=== PATIENT | female | born 1980 | race Caucasian/White ===

== ENCOUNTER 2017-03-23 20:45 | Emergency (ER) | payer SELFPAY ==
[2017-03-23] MEDS ORDERED: ONDANSETRON HCL/PF 4 MG/ 2ML VIAL ONE (21:23)
[2017-03-23] MEDS ORDERED: 0.9 % SODIUM CHLORIDE 1,000 ML IV ONE ×2 (21:23→21:32)
[2017-03-23] MEDS ORDERED: KETOROLAC TROMETHAMINE 30 MG/1ML VIAL ONE (21:23)
[2017-03-23] MEDS ORDERED: ONDANSETRON HCL/PF 4 MG/ 2ML VIAL IVP ONE (21:32)
[2017-03-23] MEDS ORDERED: KETOROLAC TROMETHAMINE 30 MG/1ML VIAL IVP ONE (21:32)
[2017-03-23 21:41] LABS: BASOPHILS % 0.4 (0.0-1.5); MEAN CORPUSCULAR HEMOGLOBIN 30.1 pg (28.0-34.0); MEAN CORPUSCULAR VOLUME 90.1 fl (80.0-100.0)
[2017-03-23 21:54] LABS: eGFR (African) > 60; eGFR (Non-African) > 60
[2017-03-23] MEDS ORDERED: HYDROcodone /APAP 5/325 1 EACH TABLET PO ONE (22:30)
--- NOTE | 2017-03-23 22:32 | ED Physician Documentation ---
General Adult - HPI Stated Complaint: Left Ear Pain Chief Complaint: General Adult Onset: days ago Timing: still present Severity: moderate Further Comments: yes (Pt is a 37 yo female with L ear pain after being on vacation and going to the beach in [place]. Pt has had n/v. Pt has had no cough, no dysuria. Normal bm's.) - ROS CONST: no problems EYES/ENT: other (L ear pain) CVS/RESP: none GI/: vomiting, nausea MS/SKIN/LYMPH: none - PAST HX Past History: other (Anxiety/Depression) Surgeries/Procedures: , hysterectomy Allergies/Adverse Reactions: Allergies Allergy/AdvReac Type Severity Reaction Status Date / Time prochlorperazine edisylate Allergy Mild unknown' Verified 03/23/17 21:11 [From Compazine] prochlorperazine maleate Allergy Mild unknown' Verified 03/23/17 21:11 [From Compazine] tramadol Allergy Mild Hives Verified 03/23/17 21:11 Penicillins Allergy Unknown Verified 03/23/17 21:11 cefaclor [From Ceclor] Allergy Verified 03/23/17 21:11 Home Medications: Ambulatory Orders Medication Instructions Recorded Carbamazepine [Tegretol] 200 mg PO BID 01/09/14 Citalopram Hydrobromide [Celexa] 40 mg PO D 01/09/14 Estradiol [Estrace] 1 mg PO D 01/09/14 Propranolol HCl [Inderal] 20 mg PO TID #90 tablet 11/21/14 - SOCIAL HX Smoking History: cigarettes - FAMILY HX Family History: No - VITAL SIGNS Vital Signs: Vital Signs Temp Pulse Resp BP Pulse Ox 97.1 F L 70 16 99/63 99 03/23/17 20:45 03/23/17 20:45 03/23/17 20:45 03/23/17 20:45 03/23/17 20:45 - REVIEWED ASSESSMENTS Nursing Assessment Reviewed: Yes Vitals Reviewed: Yes Progress - Progress Progress: NS 1 L IVF Zofran 4 mg IV [place] (5/325) 1 po in Er Keflex 500 mg po in ER. Rx Keflex 500 mg. Take one every 8 hrs for 10 days. Rx [place] (5/325). Take one or two every 4 to 6 hrs as needed for moderate to severe pain. ED Results Lab/Radiology - Lab Results Lab Results: Lab Results 03/23/17 03/23/17 21:32 21:32 WBC 3.00 K/ul L K/ul (4.00-12.00) RBC 4.11 M/ul M/ul (3.90-5.20) Hgb 12.4 g/dL g/dL (12.0-16.0) Hct 37.0 % % (34.5-46.5) MCV 90.1 fl fl (80.0-100.0) MCH 30.1 pg pg (28.0-34.0) MCHC 33.4 g/dL g/dL (30.0-36.0) RDW 12.7 % % (11.3-14.3) Plt Count 152 K/mm3 K/mm3 (130-400) Neut % (Auto) 32.1 % L % (39.0-79.0) Lymph % (Auto) 55.8 % H % (16.0-50.0) King % (Auto) 6.0 % % (0.0-11.0) Eos % (Auto) 3.0 % % (0.0-6.8) Baso % (Auto) 0.4 (0.0-1.5) Neut # (Auto) 1.0 # k/uL L # k/uL (1.4-7.7) Lymph # (Auto) 1.7 # k/uL # k/uL (0.6-4.0) King # (Auto) 0.2 # k/uL # k/uL (0.0-0.9) Eos # (Auto) 0.1 # k/uL # k/uL (0.0-0.6) Baso # (Auto) 0.0 # k/uL # k/uL (0.0-0.5) Reactive Lymphs % 2.7 % % (0.0-5.0) Reactive Lymphs # 0.1 # k/uL # k/uL (0.0-0.8) Sodium 140 mmol/L mmol/L (136-145) Potassium 3.7 mmol/L mmol/L (3.5-5.0) Chloride 106 mmol/L mmol/L (98-110) Carbon Dioxide 31 mmol/L mmol/L (20-32) BUN 10 mg/dL mg/dL (10-26) Creatinine 0.6 mg/dL mg/dL (0.4-1.5) Estimated Creat Clear 165 Est GFR ( Amer) > 60 (60 - ) Est GFR (Non-Af Amer) > 60 (60 - ) Glucose 104 mg/dL H mg/dL (70-99) Calcium 9.6 mg/dL mg/dL (8.5-10.5) Total Bilirubin 0.3 mg/dL mg/dL (0.2-1.2) AST 21 U/L U/L (0-41) ALT 27 U/L U/L (0-45) Alkaline Phosphatase 56 U/L U/L (46-116) Total Protein 6.4 g/dL g/dL (6.0-8.5) Albumin 4.1 g/dL g/dL (3.0-5.5) - Orders Orders: ED Orders Category Date Time Status Place IV Lock 1T Care 03/23/17 21:32 Active CBC/PLATELET/DIFF Routine Lab 03/23/17 21:32 Completed CMP Routine Lab 03/23/17 21:32 Completed 0.9 % Sodium Chloride [Normal Saline] 1,000 ml Med 03/23/17 21:23 Discontinued IV .STK-MED 0.9 % Sodium Chloride [Normal Saline] 1,000 ml Med 03/23/17 21:32 Active IV Q1H HYDROcodone /APAP 5/325 [[place] 5/325] Med 03/23/17 22:30 Once 2 each PO NOW ONE Ketorolac Tromethamine [Toradol] Med 03/23/17 21:23 Discontinued 30 mg .ROUTE .STK-MED ONE Ketorolac Tromethamine [Toradol] Med 03/23/17 21:32 Discontinued 30 mg IVP NOW ONE Ondansetron HCl/Pf [Zofran 4 mg/2 ml] Med 03/23/17 21:23 Discontinued 4 mg .ROUTE .STK-MED ONE Ondansetron HCl/Pf [Zofran 4 mg/2 ml] Med 03/23/17 21:32 Discontinued 4 mg IVP NOW ONE General Adult Physical Exam - PHYSICAL EXAM GENERAL APPEARANCE: moderate distress EENT: pharynx normal, TM erythema (L) NECK: normal inspection, supple RESPIRATORY: no resp distress, chest non-tender, breath sounds normal CVS: reg rate & rhythm, heart sounds normal ABDOMEN: soft, no organomegaly, normal bowel sounds BACK: normal inspection, no CVA tenderness SKIN: warm/dry, normal color EXTREMITIES: non-tender, normal range of motion, no evidence of injury, no edema NEURO: oriented X3, motor nml, sensation nml Discharge Clincal Impression: L ear pain Referrals: Laura Mcelroy PRN [Primary Care Provider] - Home Medications: Ambulatory Orders Carbamazepine [Tegretol] 200 mg PO BID 01/09/14 Citalopram Hydrobromide [Celexa] 40 mg PO D 01/09/14 Estradiol [Estrace] 1 mg PO D 01/09/14 Propranolol HCl [Inderal] 20 mg PO TID #90 tablet 11/21/14 Condition: Stable Disposition: 01 HOME, SELF-CARE Decision to Admit: NO Decision Time: 22:46
[2017-03-23] MEDS ORDERED: CEPHALEXIN 250 MG CAPSULE PO ONE (22:34)
[2017-03-23] MEDS ORDERED: CEPHALEXIN 250 MG CAPSULE ONE (22:35)
[2017-03-23 22:43] VITALS: BP 108/68
== END 2017-03-23 22:42 | disposition home or self-care (01) ==
LOC: ED 20:45
DX: H92.02 Otalgia, left ear (principal)
CPT/HCPCS: 80053; 85025; A9270; J1885; J2405; J7030; 96361; 96374; 96375; 99283; S1016

== ENCOUNTER 2017-04-23 23:14 | Emergency (ER) | payer SELFPAY ==
[2017-04-23] MEDS ORDERED: CEPHALEXIN 250 MG CAPSULE PO ONE (23:43)
[2017-04-23] MEDS ORDERED: HYDROcodone /APAP 5/325 1 EACH TABLET PO ONE (23:43)
--- NOTE | 2017-04-23 23:50 | ED Physician Documentation ---
Skin Rash - HISTORIAN Historian: patient - HPI Stated Complaint: spider bite Chief Complaint: Skin Rash Front/Back of Body, Lg ([place]): 1 - area of induration with vessiculasr aspect Onset: days ago (2) Timing: still present Duration: persistent since (happened) Location: other (left gluteal area) Quality: itchy, painful Identified Cause?: Yes (spider found beneath her) When Did Symptoms Start: 04/22/17 Context: Medication Exposure: none Context: Food Exposure: none Context: Other Exposure: spider bite Further Comments: no - ROS CONST: none CVS/RESP: none EYES/ENT: none GI/: none MS/SKIN/LYMPH: rash (as noted above) NEURO/PSYCH: none - PAST HX Past History: other (anxiety, depression) Other History: none Surgeries/Procedures: No Immunizations: referred to PCP Allergies/Adverse Reactions: Allergies Allergy/AdvReac Type Severity Reaction Status Date / Time prochlorperazine edisylate Allergy Mild unknown' Verified 04/23/17 23:20 [From Compazine] prochlorperazine maleate Allergy Mild unknown' Verified 04/23/17 23:20 [From Compazine] tramadol Allergy Mild Hives Verified 04/23/17 23:20 Penicillins Allergy Unknown Verified 04/23/17 23:20 cefaclor [From Ceclor] Allergy Verified 04/23/17 23:20 Home Medications: Ambulatory Orders Medication Instructions Recorded Citalopram Hydrobromide [Celexa] 40 mg PO D 01/09/14 Estradiol [Estrace] 1 mg PO D 01/09/14 Propranolol HCl [Inderal] 20 mg PO TID #90 tablet 11/21/14 Baclofen 20 mg PO QID 04/23/17 - SOCIAL HX Smoking History: non-smoker Alcohol Use: none Drug Use: none - FAMILY HX Family History: none - VITAL SIGNS Vital Signs: Vital Signs Temp Pulse Resp BP Pulse Ox 98.2 F 61 16 104/62 98 04/23/17 23:15 04/23/17 23:15 04/23/17 23:15 04/23/17 23:15 04/23/17 23:15 - REVIEWED ASSESSMENTS Nursing Assessment Reviewed: Yes Vitals Reviewed: Yes Progress - Results/Orders Results/Orders: no testing ordered - Progress Progress: pt. given 1000 mg Keflex and Vicodin 5/325 p.o. in er Critical Care Note - Critical Care Note Total Time (mins): 0 ED Results Lab/Radiology - Lab Results Lab Results: no testing ordered - Radiology Radiology Impressions: no testing ordered - Orders Orders: ED Orders Category Date Time Status Cephalexin [Keflex] Med 04/23/17 23:43 Discontinued 1,000 mg PO NOW ONE HYDROcodone /APAP 5/325 [[place] 5/325] Med 04/23/17 23:43 Discontinued 1 each PO NOW ONE Skin Rash Physical Exam - EXAM General Appearance: alert, moderate distress Skin: warm,dry, tender indurated area (2 x 2 cm left gluteal area) Location: other (left gluteal area) Character: asymmetric, patchy, vesicular, urticarial Symptoms: warmth, tenderness, rough texture Extremities: non-tender EENT: eyes nml inspection, lips nml, gums nml, pharynx nml Neck: trachea midline, no swelling Respiratory: no resp distress, chest non-tender, breath sounds normal CVS: reg. rate & rhythm, heart sounds nml Abdomen: non-tender, no organomegaly, nml bowel sounds, no distention Neuro/Psych: oriented x3, CN's nml as tested, motor nml, sensation nml, mood/ affect nml Discharge Clincal Impression: Cellulitis Qualifiers: Site of cellulitis: buttock Qualified Code(s): L03.317 - Cellulitis of buttock Referrals: Laura Mcelroy, PRN [Primary Care Provider] - 2 Days Home Medications: Ambulatory Orders Citalopram Hydrobromide [Celexa] 40 mg PO D 01/09/14 Estradiol [Estrace] 1 mg PO D 01/09/14 Propranolol HCl [Inderal] 20 mg PO TID #90 tablet 11/21/14 Baclofen 20 mg PO QID 04/23/17 Comments: Discharged in stable condition with scripts for Keflex 500 mg #30 2 p.o. bid and Vicodin 5/325 #10 1 p.o. qid prn pain. Condition: Stable Disposition: 01 HOME, SELF-CARE Decision to Admit: NO Decision Time: 23:49
[2017-04-23 23:52] VITALS: BP 104/60
== END 2017-04-23 23:50 | disposition home or self-care (01) ==
LOC: ED 23:14
DX: L03.317 Cellulitis of buttock (principal)
CPT/HCPCS: 99283; A9270-GY

== ENCOUNTER 2017-05-01 12:26 | Outpatient (CLI) | payer SELFPAY | END 2017-05-01 12:27 | LOC: LAB 12:26 | PROVIDERS: ATTEND Psychiatry & Neurology Psychiatry | DX: Z79.899 Other long term (current) drug therapy (principal) | CPT/HCPCS: 80377; G0481 ==

== ENCOUNTER 2017-06-02 16:53 | Emergency (ER) | payer SELFPAY ==
--- NOTE | 2017-06-02 17:09 | ED Physician Documentation ---
Headache - HISTORIAN Historian: patient - HPI Stated Complaint: Migraine Chief Complaint: Headache Onset: hours (8) Timing: other (started 3 days ago with increasing nausea ) New Gradual Onset: No Exposure To: none Severity: moderate Quality: pain Associated Symptoms: sensitivity to light, nausea, vomiting. denies: fever, chills, sweating, problems with vision, neck pain, stiffness, speech problems, weakness, trouble walking, tingling, numbness, dizziness, light-headedness Preceding Symptoms: denies: visual disturbance Exacerbated By: light, movement, position Further Comments: no Last known Well Date: 05/30/17 Last Known Well Time: 08:00 Last known Well Code/Unknown Code: Unknown - ROS NEURO/PSYCH: denies: confusion, anxiety, depression, fainting EYES/ENT: denies: sore throat, difficulty swallowing, sinus pain, drainage CVS/RESP: denies: chest pain, shortness of breath, cough GI/: denies: abdominal pain, diarrhea, incontinence MS/SKIN/LYMPH: denies: muscle aches, back pain - PAST HX Medical History: other (migraines ) Surgical History: other (csections x 2 , wisdom teeth removal, lap ) Immunizations: referred to PCP - SOCIAL HX Smoking History: non-smoker Alcohol Use: none Drug Use: none - Family HX Family History: none - REVIEWED ASSESSMENTS Nursing Assessment Reviewed: Yes Vitals Reviewed: Yes - PAST HX Allergies/Adverse Reactions: Allergies Allergy/AdvReac Type Severity Reaction Status Date / Time prochlorperazine edisylate Allergy Mild unknown' Verified 06/02/17 17:15 [From Compazine] prochlorperazine maleate Allergy Mild unknown' Verified 06/02/17 17:15 [From Compazine] tramadol Allergy Mild Hives Verified 06/02/17 17:15 Penicillins Allergy Unknown Verified 06/02/17 17:15 [facility] Allergy Verified 06/02/17 17:15 Home Medications: Ambulatory Orders Medication Instructions Recorded Citalopram Hydrobromide [Celexa] 40 mg PO D 01/09/14 Estradiol [Estrace] 1 mg PO D 01/09/14 Propranolol HCl [Inderal] 20 mg PO TID #90 tablet 11/21/14 Baclofen 20 mg PO QID 04/23/17 Ondansetron HCl Rapdis [Zofran Odt] 4 mg PO Q8 PRN #5 tab 06/02/17 - VITAL SIGNS Vital Signs: Vital Signs Temp Pulse Resp BP Pulse Ox 98.2 F 80 16 134/87 98 06/02/17 17:11 06/02/17 17:11 06/02/17 17:11 06/02/17 17:11 06/02/17 17:11 Progress - Progress Progress: 1749: states her headache is 04/09 1817: reports she is resting now. headache is "better and no nausea" (Luann Wayne) Patient was seen and I agree with assessment and treatment plan for patient. Nick Orr MD (Nick Orr) - Orders Orders: ED Orders Category Date Time Status Place IV Lock 1T Care 06/02/17 17:27 Active 0.9 % Sodium Chloride [Normal Saline] 1,000 ml Med 06/02/17 17:25 Discontinued IV Q1H Ketorolac Tromethamine [Toradol] Med 06/02/17 17:26 Discontinued 30 mg IVP NOW ONE Ondansetron HCl/Pf [Zofran 4 mg/2 ml] Med 06/02/17 17:26 Discontinued 4 mg IVP NOW ONE diphenhydrAMINE HCL [Benadryl] Med 06/02/17 17:26 Discontinued 25 mg IVP NOW ONE fentaNYL CITRATE/PF [Duragesic] Med 06/02/17 18:03 Discontinued 25 mcg IVP NOW ONE Headache Physical Exam - EXAM General Appearance: no acute distress, alert EENT: PERRL Neck: normal inspection Respiratory: no resp distress, chest non-tender, breath sounds normal CVS: reg. rate & rhythm, heart sounds nml, murmur Abdomen: non-tender, no organomegaly, nml bowel sounds, no distention Skin: color nml, no rash Extremitites: non-tender - NEURO/PSYCH Higher Functions: alert, oriented x3, slow to respond Cranial: nml as tested, no evidence of acute CVA Cerebellar: nml as tested Sensorimotor: motor nml, sensation nml Discharge Decision to Admit: NO Date of Decison to Admit: 06/02/17 Decision Time: 18:18 Clincal Impression: Headache Qualifiers: Headache type: unspecified Headache chronicity pattern: acute headache Intractability: not intractable Qualified Code(s): R51 - Headache Prescriptions: Ondansetron HCl Rapdis [Zofran Odt] 4 mg PO Q8 PRN #5 tab PRN Reason: Nausea / Vomiting Referrals: Laura Mcelroy PRN [Primary Care Provider] - 2 Days Condition: Stable Disposition: 01 HOME, SELF-CARE
[2017-06-02] MEDS ORDERED: 0.9 % SODIUM CHLORIDE 1,000 ML IV ONE (17:25)
[2017-06-02] MEDS ORDERED: KETOROLAC TROMETHAMINE 30 MG/1ML VIAL IVP ONE (17:26)
[2017-06-02] MEDS ORDERED: diphenhydrAMINE HCL 50 MG/ML VIAL IVP ONE (17:26)
[2017-06-02] MEDS ORDERED: ONDANSETRON HCL/PF 4 MG/ 2ML VIAL IVP ONE (17:26)
[2017-06-02] MEDS ORDERED: fentaNYL CITRATE/PF 100 MCG/ 2ML AMP IVP ONE (18:03)
[2017-06-02 18:36] VITALS: BP 112/69
== END 2017-06-02 18:31 | disposition home or self-care (01) ==
LOC: ED 16:53
DX: R51 Headache (principal)
CPT/HCPCS: J1200; J1885; J2405; J3010; J7030; 96361; 96374; 96375; 99283; S1016

== ENCOUNTER 2017-07-20 19:10 | Emergency (ER) | payer SELFPAY ==
--- NOTE | 2017-07-20 19:22 | ED Physician Documentation ---
Fall - HISTORIAN Historian: patient, spouse - HPI Stated Complaint: fall down home stairs Chief Complaint: Fall Onset: just prior to arrival Where: home Context: slipped r: moderate Associated Symptoms:: no loss of consciousness. denies: memory impairment Location of Pain/Injury: neck, upper back, R shoulder Injury to Right Extremity: leg Injury to Left Extremity: wrist - ROS CONST: no problems NEURO: denies: dizziness, anxiety MS/SKIN/LYMPH: back pain. denies: weakness, numbness, ankle swelling, leg swelling EYES/ENT: none CVS/RESP: none GI/: denies: problems urinating - PAST HX Past History: other (depression and Migraines ) Allergies/Adverse Reactions: Allergies Allergy/AdvReac Type Severity Reaction Status Date / Time prochlorperazine edisylate Allergy Mild unknown' Verified 07/20/17 19:34 [From Compazine] prochlorperazine maleate Allergy Mild unknown' Verified 07/20/17 19:34 [From Compazine] tramadol Allergy Mild Hives Verified 07/20/17 19:34 Penicillins Allergy Unknown Verified 07/20/17 19:34 cefaclor [From Ceclor] Allergy Verified 07/20/17 19:34 Home Medications: Ambulatory Orders Medication Instructions Recorded Citalopram Hydrobromide [Celexa] 40 mg PO D 01/09/14 Estradiol [Estrace] 1 mg PO D 01/09/14 Propranolol HCl [Inderal] 20 mg PO TID #90 tablet 11/21/14 Baclofen 20 mg PO QID 04/23/17 Carbamazepine [Tegretol] 07/20/17 Citalopram Hydrobromide 07/20/17 [Citalopram HBr] - VITAL SIGNS Vital Signs: Vital Signs Temp Pulse Resp BP Pulse Ox 112/69 06/02/17 18:31 ED Results Lab/Radiology - Radiology Radiology Impressions: Cervical spine 1 view crosstable Date of Exam: July 20, 2017. History: 1V CSPINE, FALL, NECK PAIN (Hx) Findings: Reversal of cervical lordosis is present. No fracture or subluxation is identified. There is C4/C5 and C5/C6 degenerative disc space narrowing and endplate spurring. Impression: Reversal of lordosis and degenerative cervical spondylosis. Electronically signed on Jul 20, 2017 8:26:34 PM TAR KETTLE RUNNER by: Azalia Street Right shoulder 3 views Date of Exam: July 20, 2017. History: FALL, RIGHT SHOULDER PAIN (Hx) Findings: No acute fracture or dislocation is identified. The right humerus is in appropriate relationship with the glenoid fossa. The visualized right ribs and right clavicle are intact. Impression: No acute osseous abnormality. Electronically signed on Jul 20, 2017 8:36:42 PM TAR KETTLE RUNNER by: Azalia Street Left shoulder 3 views Date of Exam: July 20, 2017. History: FALL, LEFT SHOULDER PAIN (Hx) Findings: No acute fracture or dislocation is identified. The left humeral head is in appropriate relationship with the glenoid fossa. The visualized left ribs and clavicle are intact. Impression: No acute osseous abnormality. Electronically signed on Jul 20, 2017 8:37:42 PM TAR KETTLE RUNNER by: Azalia Street Right tibia fibula 2 views Date of Exam: July 20, 2017. History: FALL, PT STATES SHE HIT HER GAUTHIER WHEN SHE FELL (Hx) Findings: No acute fracture or dislocation is identified. The tibiotalar alignment is maintained. Impression: No acute osseous abnormality. Electronically signed on Jul 20, 2017 8:38:35 PM TAR KETTLE RUNNER by: Azalia Street Left wrist 3 views Date of Exam: July 20, 2017. History: FALL, LEFT WRIST PAIN (Hx) Findings: No acute fracture or dislocation is identified. The radiocarpal alignment is maintained. The visualized carpal bones and metacarpals are intact. Impression: No acute fracture or acute osseous abnormality. Electronically signed on Jul 20, 2017 8:39:42 PM TAR KETTLE RUNNER by: Azalia Street Fall Physical Exam - Physical Exam General Appearance: no acute distress Head: non-tender, no swelling, no obvious injury Neck: non-tender, painless ROM. No: limited ROM, pain with neck movement Eye: BROWN Resp/CVS: chest non-tender, breath sounds nml, no resp. distress, heart sounds nml Abdomen: soft, no organomegaly, normal bowel sounds Neuro: oriented x3, CN's nml as tested, sensation nml, motor nml, mood/affect nml, roofer nml, reflexes nml. No: disoriented Skin: color nml, no rash Back: normal inspection, other (tenderness on right upper back ) Joint: joints nml, nml ROM, limited ROM, painful (left wrist flexion ) - Mare Coma Score Eyes Open: Spontaneous Speech: Oriented Motor: Obeys Commands Discharge Clincal Impression: Fall (on) (from) other stairs and steps, initial encounter Referrals: Laura Mcelroy PRN [Primary Care Provider] - 2 Days Condition: Stable Disposition: 01 HOME, SELF-CARE Decision to Admit: NO Date of Decison to Admit: 07/20/17 Decision Time: 20:48
[2017-07-20] MEDS ORDERED: KETOROLAC TROMETHAMINE 60 MG/2 ML VIAL IM ONE (19:37)
[2017-07-20] MEDS ORDERED: ORPHENADRINE CITRATE 60 MG/2ML IM ONE (19:37)
[2017-07-20] MEDS ORDERED: HYDROcodone /APAP 5/325 1 EACH TABLET PO ONE (20:53)
[2017-07-20 21:27] VITALS: BP 114/68
--- NOTE | 2017-07-21 08:03 | Diagnostic Imaging Report ---
ELAN TALBERT [facility] [id number] [facility] [address] [place], [place]. [address] Report Submission Date: Jul 20, 2017 8:26:34 PM CUSTOM BIKE BUILDER Patient Study Name: MITCHELL PEARL Date: Jul 20, 2017 7:55:35 PM CUSTOM BIKE BUILDER Modality Type: CR Gender: F Description: SPINE : 84 Institution: [facility] Physician: ELAN TALBERT Cervical spine 1 view crosstable Date of Exam: July 20, 2017. History: 1V CSPINE, FALL, NECK PAIN (Hx) Findings: Reversal of cervical lordosis is present. No fracture or subluxation is identified. There is C4/C5 and C5/C6 degenerative disc space narrowing and endplate spurring. Impression: Reversal of lordosis and degenerative cervical spondylosis. Electronically signed on Jul 20, 2017 8:26:34 PM CUSTOM BIKE BUILDER by: Azalia HAMM
--- NOTE | 2017-07-21 08:04 | Diagnostic Imaging Report ---
ELAN TALBERT [facility] [address] [facility] [address] [place], [place]. [address] Report Submission Date: Jul 20, 2017 8:36:42 PM BELL CLERK Patient Study Name: MITCHELL PEARL Date: Jul 20, 2017 8:07:16 PM BELL CLERK Modality Type: CR Gender: F Description: SHOULDER : 84 Institution: [facility] Physician: ELAN TALBERT Right shoulder 3 views Date of Exam: July 20, 2017. History: FALL, RIGHT SHOULDER PAIN (Hx) Findings: No acute fracture or dislocation is identified. The right humerus is in appropriate relationship with the glenoid fossa. The visualized right ribs and right clavicle are intact. Impression: No acute osseous abnormality. Electronically signed on Jul 20, 2017 8:36:42 PM BELL CLERK by: Azalia HAMM
--- NOTE | 2017-07-21 08:04 | Diagnostic Imaging Report ---
ELAN TALBERT [facility] [address] [facility] [address] [place], [place]. [address] Report Submission Date: Jul 20, 2017 8:38:35 PM LIABILITY CLAIMS EXAMINER Patient Study Name: MITCHELL PEARL Date: Jul 20, 2017 8:10:00 PM LIABILITY CLAIMS EXAMINER Modality Type: CR Gender: F Description: LOWER EXTREMITY : 84 Institution: [facility] Physician: ELAN TALBERT Right tibia fibula 2 views Date of Exam: July 20, 2017. History: FALL, PT STATES SHE HIT HER GAUTHIER WHEN SHE FELL (Hx) Findings: No acute fracture or dislocation is identified. The tibiotalar alignment is maintained. Impression: No acute osseous abnormality. Electronically signed on Jul 20, 2017 8:38:35 PM LIABILITY CLAIMS EXAMINER by: Azalia HAMM
--- NOTE | 2017-07-21 08:05 | Diagnostic Imaging Report ---
ELAN TALBERT [facility] [address] [facility] [address] [place], [place]. [address] Report Submission Date: Jul 20, 2017 8:37:42 PM DISTRICT MANAGER POSTAL SERVICE Patient Study Name: MITCHELL PEARL Date: Jul 20, 2017 8:14:05 PM DISTRICT MANAGER POSTAL SERVICE Modality Type: CR Gender: F Description: SHOULDER : 84 Institution: [facility] Physician: ELAN TALBERT Left shoulder 3 views Date of Exam: July 20, 2017. History: FALL, LEFT SHOULDER PAIN (Hx) Findings: No acute fracture or dislocation is identified. The left humeral head is in appropriate relationship with the glenoid fossa. The visualized left ribs and clavicle are intact. Impression: No acute osseous abnormality. Electronically signed on Jul 20, 2017 8:37:42 PM DISTRICT MANAGER POSTAL SERVICE by: Azalia HAMM
--- NOTE | 2017-07-21 08:05 | Diagnostic Imaging Report ---
ELAN TALBERT [facility] [address] [facility] [address] [place], [place]. [address] Report Submission Date: Jul 20, 2017 8:39:42 PM BREAD OVEN OPERATOR Patient Study Name: MITCHELL PEARL Date: Jul 20, 2017 8:26:39 PM BREAD OVEN OPERATOR Modality Type: CR Gender: F Description: UPPER EXTREMITY : 84 Institution: [facility] Physician: ELAN TALBERT Left wrist 3 views Date of Exam: July 20, 2017. History: FALL, LEFT WRIST PAIN (Hx) Findings: No acute fracture or dislocation is identified. The radiocarpal alignment is maintained. The visualized carpal bones and metacarpals are intact. Impression: No acute fracture or acute osseous abnormality. Electronically signed on Jul 20, 2017 8:39:42 PM BREAD OVEN OPERATOR by: Azalia HAMM
== END 2017-07-20 21:15 | disposition home or self-care (01) ==
LOC: ED 19:10
DX: M25.539 Pain in unspecified wrist (principal); W19.XXXA Unspecified fall, initial encounter; Y93.9 Activity, unspecified; Y99.9 Unspecified external cause status
CPT/HCPCS: 72020; 73030; 73110; 73590; A9270; J2360; 99283

== ENCOUNTER 2018-08-09 17:16 | Emergency (ER) | payer SELFPAY ==
[2018-08-09] MEDS ORDERED: DEXAMETHASONE SOD PHOS 4 MG/ML VIAL IVP ONE (18:05)
[2018-08-09] MEDS ORDERED: diphenhydrAMINE HCL 50 MG/ML VIAL IVP ONE (18:05)
[2018-08-09] MEDS ORDERED: PROMETHAZINE HCL 25 MG/ML VIAL IM ONE (18:05)
[2018-08-09] MEDS ORDERED: KETOROLAC TROMETHAMINE 30 MG/1ML VIAL IVP ONE (18:05)
[2018-08-09] MEDS ORDERED: 0.9 % SODIUM CHLORIDE 1,000 ML IV ONE (18:30)
[2018-08-09] MEDS ORDERED: 0.9 % SODIUM CHLORIDE 50 ML IV ONE (18:32)
[2018-08-09] MEDS ORDERED: HYDROmorphone HCL/PF 1 MG/ML VIAL IVP ONE (19:25)
--- NOTE | 2018-08-09 20:26 | ED Physician Documentation ---
Headache - HISTORIAN Historian: patient - HPI Stated Complaint: headache Chief Complaint: Headache Onset: hours Timing: still present, worse Exposure To: none Severity: severe Quality: similar to previous, pain Further Comments: yes (38 year old female patient presents with complaint of migraine 06/09; photophobia and nausea. State she has not been able to eat or drink today due to pain and nausea. Last migraine 1 year ago. Does not have maintenance medications.) - ROS NEURO/PSYCH: denies: confusion, anxiety, depression, fainting, other EYES/ENT: denies: sore throat, difficulty swallowing, sinus pain, drainage, other CVS/RESP: none GI/: denies: abdominal pain, diarrhea, problems urinating, incontinence, other MS/SKIN/LYMPH: denies: muscle aches, back pain, rash, skin lesions, swollen glands, other all systems neg except as marked: Yes - PAST HX Medical History: no pertinent history Allergies/Adverse Reactions: Allergies Allergy/AdvReac Type Severity Reaction Status Date / Time prochlorperazine edisylate Allergy Mild unknown' Verified 08/09/18 17:55 [From Compazine] prochlorperazine maleate Allergy Mild unknown' Verified 08/09/18 17:55 [From Compazine] tramadol Allergy Mild Hives Verified 08/09/18 17:55 Penicillins Allergy Unknown Verified 08/09/18 17:55 cefaclor [From Ceclor] Allergy Verified 08/09/18 17:55 Home Medications: Ambulatory Orders Medication Instructions Recorded Citalopram Hydrobromide [Celexa] 40 mg PO D 01/09/14 Estradiol [Estrace] 1 mg PO D 01/09/14 Propranolol HCl [Inderal] 20 mg PO TID #90 tablet 11/21/14 Baclofen 20 mg PO QID 04/23/17 Carbamazepine [Tegretol] 200 mg PO QID 07/20/17 Zolpidem Tartrate [Ambien] 2.5 mg PO HS PRN 08/09/18 - SOCIAL HX Smoking History: non-smoker - Family HX Family History: denies: none - VITAL SIGNS Vital Signs: Vital Signs Temp Pulse Resp BP Pulse Ox 97.6 F 67 16 103/76 97 08/09/18 20:45 08/09/18 20:45 08/09/18 20:45 08/09/18 20:45 08/09/18 20:45 - REVIEWED ASSESSMENTS Nursing Assessment Reviewed: Yes Vitals Reviewed: Yes Progress - Progress Progress: Patient medicated with benadryl, decadron, toradol and promethazine 1914 Patient states medication has had minimal effect. Dilaudid 1 mg IV given. 1944 Patient sleeping on stretcher. ED Results Lab/Radiology - Orders Orders: ED Orders Category Date Time Status Place IV Lock 1T Care 08/09/18 18:05 Active 0.9 % Sodium Chloride [Normal Saline] 1,000 ml Med 08/09/18 18:30 Discontinued IV NOW 0.9 % Sodium Chloride [Sodium Chloride] 50 ml Med 08/09/18 18:32 Discontinued IV .STK-MED Dexamethasone Sodium Phosphate [Decadron] Med 08/09/18 18:05 Discontinued 4 mg IVP NOW ONE HYDROmorphone HCL/PF [Dilaudid] Med 08/09/18 19:25 Discontinued 1 mg IVP NOW ONE Ketorolac Tromethamine [Toradol] Med 08/09/18 18:05 Discontinued 30 mg IVP NOW ONE Promethazine HCl [Phenergan] Med 08/09/18 18:05 Discontinued 25 mg IM NOW ONE diphenhydrAMINE HCL [Benadryl] Med 08/09/18 18:05 Discontinued 25 mg IVP NOW ONE Headache Physical Exam - EXAM General Appearance: severe distress EENT: no facial swelling, eyes nml inspection, PERRL, nml ENT, pharynx nml Respiratory: no resp distress, chest non-tender, breath sounds normal CVS: reg. rate & rhythm, heart sounds nml Abdomen: non-tender, no organomegaly, nml bowel sounds, no distention Skin: color nml, no rash, warm, nml palp., dry Extremitites: non-tender, normal range of motion, no evidence of injury, no edema, J, [employer] - NEURO/PSYCH Higher Functions: alert, oriented x3, nml speech, mood/affect nml Cranial: no evidence of acute CVA Discharge Clincal Impression: Headache Qualifiers: Headache type: unspecified Headache chronicity pattern: acute headache Intractability: not intractable Qualified Code(s): R51 - Headache Referrals: Laura Mcelroy PRN [Primary Care Provider] - 2 Days Additional Instructions: rest in cool dark room. Follow up next week with primary care provider for headache maintenance me dication. A prescription for nausea medication has been sent to the pharmacy. Condition: Stable Disposition: 01 HOME, SELF-CARE Decision to Admit: NO Decision Time: 20:23
[2018-08-09 21:28] VITALS: BP 103/76
== END 2018-08-09 20:45 | disposition home or self-care (01) ==
LOC: ED 17:16
DX: R51 Headache (principal)
CPT/HCPCS: 96372; 96374; 96375; 99281; 99284; J1100; J1170; J1200; J1885; J2550; J7030; S1016

== ENCOUNTER 2018-08-11 19:12 | Emergency (ER) | payer SELFPAY ==
[2018-08-11] MEDS ORDERED: 0.9 % SODIUM CHLORIDE 1,000 ML IV ONE (19:48)
[2018-08-11] MEDS ORDERED: KETOROLAC TROMETHAMINE 30 MG/1ML VIAL IVP STA (20:07)
[2018-08-11] MEDS ORDERED: PROMETHAZINE HCL 25 MG in 0.9 % SODIUM CHLORIDE 50 ML IV STA (20:08)
[2018-08-11] MEDS ORDERED: methylPREDNISolone SOD SUCC 125 MG/2 ML VIAL IVP ONE (20:10)
[2018-08-11] MEDS ORDERED: diphenhydrAMINE HCL 50 MG/ML VIAL IVP ONE (20:13)
[2018-08-11] MEDS ORDERED: DEXAMETHASONE SOD PHOS 4 MG/ML VIAL IVP STA (20:15)
--- NOTE | 2018-08-11 20:21 | ED Physician Documentation ---
Headache - HISTORIAN Historian: patient - HPI Stated Complaint: migraine Chief Complaint: Headache Additional Information: Intro self as INSTRUCTIONAL DESIGN MANAGER. Pt presents to the ED c/o migraine that started 8am today- occipital radiates to parietal. gradual onset. pain is 9/10. pt reports nausea, photophobia, anxiety/depression-controlled. similar to previous headaches. pt reports increased stress with losing job. hx of depression. takes tegretol, propanolol, celexa. pt seen here 2 days ago. tx for migraine and discharged with rx fiorcet and zofran. STEPHENSON improved then returned. she states they are not helping her pain. record reviewed. pt denies current chest pain, dyspnea, syncope/near syncope, dizziness, visual disturbances, n/v/d, fever/chills, rash, sick contacts, dysuria, trauma. melena or hematochezia, bleeding or easy bruising, change in bowel or bladder function, no recent weight loss/gain, , HI/SI ROS Negative unless otherwise specified. pt does not see neurology or STEPHENSON specialist. Quality: similar to previous - ROS NEURO/PSYCH: anxiety, depression. denies: confusion EYES/ENT: denies: sore throat, difficulty swallowing, sinus pain, drainage CVS/RESP: none. denies: chest pain, shortness of breath, cough GI/: denies: abdominal pain, diarrhea, problems urinating, incontinence MS/SKIN/LYMPH: denies: muscle aches, back pain, rash, skin lesions, swollen glands - PAST HX Medical History: other (depression, suicide attempt, anxiety. migraines) Surgical History: other (hysterectomy) Allergies/Adverse Reactions: Allergies Allergy/AdvReac Type Severity Reaction Status Date / Time prochlorperazine edisylate Allergy Mild unknown' Verified 08/11/18 21:45 [From Compazine] prochlorperazine maleate Allergy Mild unknown' Verified 08/11/18 21:45 [From Compazine] tramadol Allergy Mild Hives Verified 08/11/18 21:45 Penicillins Allergy Unknown Verified 08/11/18 21:45 cefaclor [From Ceclor] Allergy Verified 08/11/18 21:45 narc AdvReac Mild No Reaction Uncoded 08/11/18 21:55 Home Medications: Ambulatory Orders Medication Instructions Recorded Citalopram Hydrobromide [Celexa] 40 mg PO D 01/09/14 Estradiol [Estrace] 1 mg PO D 01/09/14 Propranolol HCl [Inderal] 20 mg PO TID #90 tablet 11/21/14 Baclofen 20 mg PO QID 04/23/17 Carbamazepine [Tegretol] 200 mg PO QID 07/20/17 Zolpidem Tartrate [Ambien] 2.5 mg PO HS PRN 08/09/18 - SOCIAL HX Smoking History: other (VAPES) Alcohol Use: none Drug Use: none - Family HX Family History: none - VITAL SIGNS Vital Signs: Vital Signs Temp Pulse Resp BP Pulse Ox 98.2 F 70 16 115/78 94 08/11/18 19:31 08/11/18 22:06 08/11/18 22:06 08/11/18 22:06 08/11/18 22:06 - REVIEWED ASSESSMENTS Nursing Assessment Reviewed: Yes Vitals Reviewed: Yes Progress - Progress Progress: 2013: EKG Rate 56. Normal PA interval. Right axis deviation. QT interval slightly prolonged at 446. pt takes celexa and propanolol. Unable to give most migraine medications due to prolonged QT interval and potential Serotonin interaction. Advised pt to follow up with primary care and establish with neurologist. advised we would be unable to give further narcotics to her for her headaches. understanding verbalized. 2140. pt reports no improvement after initial decadron, IV NS 1L, benadryl, toradol. dilaudid ordered. ED Results Lab/Radiology - Lab Results Lab Results: Lab Results 08/11/18 08/11/18 19:40 19:40 WBC 4.10 K/ul K/ul (4.00-12.00) RBC 4.03 M/ul M/ul (3.90-5.20) Hgb 12.2 g/dL g/dL (12.0-16.0) Hct 36.6 % % (34.5-46.5) MCV 91.0 fl fl (80.0-100.0) MCH 30.3 pg pg (28.0-34.0) MCHC 33.4 g/dL g/dL (30.0-36.0) RDW 11.8 % % (11.3-14.3) Plt Count 182 K/mm3 K/mm3 (130-400) Sodium 136 mmol/L mmol/L (136-145) Potassium 3.9 mmol/L mmol/L (3.5-5.1) Chloride 105 mmol/L mmol/L (98-107) Carbon Dioxide 29 mmol/L mmol/L (22-30) BUN 13 mg/dL mg/dL (7-17) Creatinine 0.70 mg/dL mg/dL (0.52-1.04) Estimated Creat Clear 125 Est GFR ( Amer) > 60 (60 - ) Est GFR (Non-Af Amer) > 60 (60 - ) Glucose 76 mg/dL mg/dL (74-106) Calcium 8.9 mg/dL mg/dL (8.4-10.2) Total Bilirubin 0.3 mg/dL mg/dL (0.2-1.3) AST 33 U/L U/L (15-46) ALT 39 U/L U/L (13-69) Alkaline Phosphatase 62 U/L U/L (38-126) Total Protein 6.3 g/dL g/dL (6.3-8.2) Albumin 3.7 g/dL g/dL (3.5-5.0) - Radiology Radiology Impressions: Report Submission Date: Aug 11, 2018 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 Neumann-white differentiation is intact. There is no intracranial hemorrhage, mass effect, fluid collection, hydrocephalus, or skull lesion. Visualized sinuses and mastoid air cells are clear. Impression: Normal. Electronically signed on Aug 11, 2018 8:52:18 PM RETAIL TEAM LEADER by: Fredis Mendoza - Orders Orders: ED Orders Category Date Time Status Blood Pressure PCLS Care 08/11/18 20:22 Active Continuous Pulse Oximetry Q30M Care 08/11/18 20:[address] IV Lock 1T Care 08/11/18 19:[address] BRAIN W/O CONTRAST Stat Exams 08/11/18 Completed CBC PLATELETS NO DIFF Stat Lab 08/11/18 19:40 Completed CMP [CMP] Stat Lab 08/11/18 19:40 Completed 0.9 % Sodium Chloride [Normal Saline] 1,000 ml Med 08/11/18 19:48 Discontinued IV NOW Dexamethasone Sodium Phosphate [Decadron] Med 08/11/18 20:15 Discontinued 4 mg IVP NOW STA HYDROmorphone HCL/PF [Dilaudid] Med 08/11/18 21:32 Discontinued 1 mg IVP NOW ONE Ketorolac Tromethamine [Toradol] Med 08/11/18 20:07 Discontinued 30 mg IVP NOW STA Promethazine HCl [Phenergan] 25 mg Med 08/11/18 20:08 Discontinued 0.9 % Sodium Chloride [Sodium Chloride] 50 ml IV NOW diphenhydrAMINE HCL [Benadryl] Med 08/11/18 20:13 Discontinued 50 mg IVP NOW ONE methylPREDNISolone SOD SUCC [Solu-MEDROL] Med 08/11/18 20:10 Discontinued 125 mg IVP NOW ONE EKG WITH COMPARISON Stat Ther 08/11/18 Ordered Headache Physical Exam - EXAM General Appearance: mild distress EENT: no facial swelling, eyes nml inspection, PERRL, nml ENT, pharynx nml Neck: normal inspection Respiratory: no resp distress, chest non-tender, breath sounds normal CVS: reg. rate & rhythm, heart sounds nml Abdomen: non-tender, no organomegaly, nml bowel sounds, no distention Skin: color nml, no rash, warm, nml palp., dry Extremitites: non-tender, normal range of motion, no evidence of injury, no edema, J, INSTRUCTIONAL DESIGN MANAGER - NEURO/PSYCH Higher Functions: alert, oriented x3, nml speech, mood/affect nml Cranial: nml as tested, no evidence of acute CVA Cerebellar: nml as tested, nml gait Sensorimotor: motor nml, sensation nml Discharge Clincal Impression: Headache Qualifiers: Headache type: unspecified Headache chronicity pattern: unspecified pattern Intractability: intractable Qualified Code(s): R51 - Headache Referrals: Laura Mcelroy PRN [Primary Care Provider] - 2 Days Additional Instructions: Follow up with primary care tomorrow. You need to be referred to a headache specialist billy and have your medications evaluated as many migraine medications interact with them and can cause fatal heart arrhythmias. seek medical care immediately if difficult to wake, difficulty breathing, feeling faint or fainting, increased rash, chest pain, shortness of breath, or fever not controlled by tylenol/motrin or any concern. Stop taking the zofran. You may continue the fioracet. Add benadryl 50 mg if you develop a headache. UNDERSTAND THAT THIS IS AN EMERGENCY EVALUATION FOR YOUR COMPLAINT TODAY AND BY NATURE IS LIMITED AND NOT A SUBSTITUTE FOR ONGOING MEDICAL CARE AND THAT EVEN THOUGH TEST RESULTS AND TREATMENT PLAN WERE EXPLAINED THERE MAY BE A NEED FOR ADDITIONAL TESTING TO FULLY DETERMINE THE EXTENT OF YOUR ILLNESS/INJURY/OR CONCERN SO YOU SHOULD CONTACT AND OR ESTABLISH WITH A PRIMARY CARE PROVIDER (OR REFERRAL DOCTOR IF APPLICABLE) FOR AN APPOINTMENT SOON POSSIBLE. Condition: Stable Disposition: 01 HOME, SELF-CARE Decision to Admit: NO Date of Decison to Admit: 08/11/18 Decision Time: 21:50
[2018-08-11] MEDS ORDERED: HYDROmorphone HCL/PF 1 MG/ML VIAL IVP ONE (21:32)
[2018-08-11 22:25] VITALS: BP 115/78
--- NOTE | 2018-08-12 06:08 | Diagnostic Imaging Report ---
LULU EMANUEL [facility] [address] [facility] [address] 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 Neumann-white differentiation is intact. There is no intracranial hemorrhage, mass effect, fluid collection, hydrocephalus, or skull lesion. Visualized sinuses and mastoid air cells are clear. Impression: Normal. Electronically signed on Aug 11, 2018 8:52:18 PM LAND SURVEYING SURVEY WORKER by: Fredis HAMM
[2018-08-12 07:14] LABS: MEAN CORPUSCULAR HEMOGLOBIN 30.3 pg (28.0-34.0); eGFR (Non-African) > 60
== END 2018-08-11 22:06 | disposition home or self-care (01) ==
LOC: ED 19:12
DX: R51 Headache (principal)
CPT/HCPCS: 36415; 70450; 80053; 85027; 93005; 96374; 96375; 99283; 99285; J1100; J1170; J1200; J1885; J7030; S1016

== ENCOUNTER 2018-11-25 18:57 | Emergency (ER) | payer SELFPAY ==
--- NOTE | 2018-11-25 19:02 | ED Physician Documentation ---
Shoulder Injury/Pain - HISTORIAN Historian: patient - HPI Stated Complaint: left shoulder pain Chief Complaint: Shoulder Injury/ Pain Additional Information: Patient presents to ED with complaints of left shoulder pain after a clothes rack fell on her shoulder while at work today around lunch time. She states the pain continued throughout the day while she was working but intensified on her drive home. She has a history of migraines and feels like the shoulder is giving her a migraine headache. She states the left shoulder pain radiates down her left arm and up into her neck Onset: today Where: work Severity: mild Pain: persistent Context: direct blow (clothes rack fell on left shoulder) Associated Symptoms: bruising, tingling - ROS CONST: no problems CVS/RESP: none GI/: nausea MS/SKIN/LYMPH: neck pain NEURO: headache - PAST HX Past History: Rt handed Allergies/Adverse Reactions: Allergies Allergy/AdvReac Type Severity Reaction Status Date / Time prochlorperazine edisylate Allergy Mild unknown' Verified 11/25/18 20:32 [From Compazine] prochlorperazine maleate Allergy Mild unknown' Verified 11/25/18 20:32 [From Compazine] tramadol Allergy Mild Hives Verified 11/25/18 20:32 Penicillins Allergy Unknown Verified 11/25/18 20:32 cefaclor [From Ceclor] Allergy Verified 11/25/18 20:32 narc AdvReac Mild No Reaction Uncoded 08/11/18 21:55 Home Medications: Ambulatory Orders Medication Instructions Recorded Citalopram Hydrobromide [Celexa] 40 mg PO D 01/09/14 Estradiol [Estrace] 1 mg PO D 01/09/14 Propranolol HCl [Inderal] 20 mg PO TID #90 tablet 11/21/14 Baclofen 20 mg PO QID 04/23/17 Carbamazepine [Tegretol] 200 mg PO QID 07/20/17 Methocarbamol [Robaxin] 500 mg PO Q6 PRN #40 tablet 11/25/18 Ondansetron HCl Rapdis [Zofran Odt] 4 mg PO Q8 PRN #20 tab 11/25/18 - SOCIAL HX Smoking History: cigarettes Alcohol Use: none Drug Use: none - FAMILY HX Family History: none - VITAL SIGNS Vital Signs: Vital Signs Temp Pulse Resp BP Pulse Ox 97.8 F 88 14 118/88 100 11/25/18 18:57 11/25/18 21:55 11/25/18 21:55 11/25/18 21:55 11/25/18 18:57 - REVIEWED ASSESSMENT Nursing Assessment Reviewed: Yes Vitals Reviewed: Yes Progress - Results/Orders Results/Orders: Report Submission Date: Nov 25, 2018 7:51:24 PM CDT Patient Study Name: MITCHELL SAENZ Date: Nov 25, 2018 7:28:29 PM CDT MRN: [id number] Modality Type: DX Gender: F Description: SHOULDER 2 VIEWS OR MORE : 84 Institution: [facility] Physician: MARY LUA EXAMINATION: SHOULDER 2 VIEWS OR MORE HISTORY: LEFT SHOULDER PAIN (Hx) COMPARISON: None FINDINGS: The osseous structures are intact without acute fracture. The glenohumeral and acromioclavicular joints are in anatomic alignment with maintained joint spaces. IMPRESSION: No acute fracture or dislocation identified. Electronically signed on Nov 25, 2018 7:51:24 PM CDT by: Tigre Olmstead ED Results Lab/Radiology - Orders Orders: ED Orders Category Date Time Status Place IV Lock 1T Care 11/25/18 19:25 Active SHOULDER 2 VIEWS OR MORE [RAD] Stat Exams 11/25/18 Completed HYDROcodone /APAP 5/325 [[place] 5/325] Med 11/25/18 20:45 Discontinued 1 each PO NOW ONE Ketorolac Tromethamine [Toradol] Med 11/25/18 19:25 Discontinued 30 mg IV NOW ONE Methocarbamol [Robaxin] Med 11/25/18 19:25 Discontinued 1,000 mg IV NOW ONE Ondansetron HCl/Pf [Zofran] Med 11/25/18 19:25 Discontinued 4 mg IVP NOW ONE Shoulder Injury Physical Exam - Physical Exam General Appearance: no acute distress, alert. No: c-collar STRIKE ON MACHINE OPERATOR, c-collar in ED Shoulder: no acute distress, soft-tissue tenderness, swelling, ecchymosis (left upper trapezius) Upper Extremity: no injury below shoulder Neuro: sensation nml, motor nml. No: sensory deficit Vascular: no vascular compromise Skin: warm/dry Head/ENT: nml inspection Respiratory: chest non-tender CVS: reg rate & rhythm, heart sounds normal Abdomen: soft, normal bowel sounds Discharge Clincal Impression: Contusion of left shoulder Qualifiers: Encounter type: initial encounter Qualified Code(s): S40.012A - Contusion of left shoulder, initial encounter Prescriptions: Methocarbamol [Robaxin] 500 mg PO Q6 PRN #40 tablet PRN Reason: muscle spasm Ondansetron HCl Rapdis [Zofran Odt] 4 mg PO Q8 PRN #20 tab PRN Reason: Nausea / Vomiting Referrals: Laura Mcelroy, PRN [Primary Care Provider] - 2 Days Additional Instructions: 1. tylenol and/or ibuprofen as needed for pain 2. Muscle relaxers at needed for muscle tension. These medications will make you drowsy 3. Apply Ice to affected area as needed for comfort 4. Follow up with PCP within 1 week 5. Return to ER for new or worsening symptoms Condition: Stable Disposition: 01 HOME, SELF-CARE Decision to Admit: NO Date of Decison to Admit: 11/25/18 Decision Time: 20:16
[2018-11-25] MEDS: ONDANSETRON HCL/PF 4 MG/ 2ML VIAL IVP ONE (20:00)
[2018-11-25] MEDS: KETOROLAC TROMETHAMINE 30 MG/1ML VIAL IV ONE (20:00)
[2018-11-25] MEDS: METHOCARBAMOL 1,000 MG/10 ML VIAL IV ONE (20:05)
[2018-11-25] MEDS: HYDROcodone /APAP 5/325 1 EACH TABLET PO ONE (20:52)
[2018-11-25 21:58] VITALS: BP 118/88
--- NOTE | 2018-11-26 06:08 | Diagnostic Imaging Report ---
MARY LUA [facility] [address] [facility] [address] [address] Report Submission Date: Nov 25, 2018 7:51:24 PM CDT Patient Study Name: MITCHELL SAENZ Date: Nov 25, 2018 7:28:29 PM CDT MRN: [id number] Modality Type: DX Gender: F Description: SHOULDER 2 VIEWS OR MORE : 84 Institution: [facility] Physician: MARY LUA EXAMINATION: SHOULDER 2 VIEWS OR MORE HISTORY: LEFT SHOULDER PAIN (Hx) COMPARISON: None FINDINGS: The osseous structures are intact without acute fracture. The glenohumeral and acromioclavicular joints are in anatomic alignment with maintained joint spaces. IMPRESSION: No acute fracture or dislocation identified. Electronically signed on Nov 25, 2018 7:51:24 PM CDT by: Tigre HAMM
== END 2018-11-25 21:15 | disposition home or self-care (01) ==
LOC: ED 18:57
DX: S40.012A Contusion of left shoulder, initial encounter (principal); W20.8XXA Other cause of strike by thrown, projected or falling object, initial encounter; Y93.89 Activity, other specified; Y92.89 Other specified places as the place of occurrence of the external cause; Y99.0 Civilian activity done for income or pay
CPT/HCPCS: 73030; 96374; 96375; 99283; 99284; A9270; J1885; J2405; S1016

== ENCOUNTER 2019-03-17 18:42 | Emergency (ER) | payer BC ==
[2019-03-17] MEDS ORDERED: 0.9 % SODIUM CHLORIDE 1,000 ML IV ONE (19:03)
[2019-03-17] MEDS ORDERED: KETOROLAC TROMETHAMINE 30 MG/1ML VIAL IV ONE (19:03)
[2019-03-17] MEDS ORDERED: DEXAMETHASONE SOD PHOS 4 MG/ML VIAL IV ONE (19:03)
[2019-03-17] MEDS ORDERED: PROMETHAZINE HCL 25 MG TABLET PO ONE (19:03)
[2019-03-17] MEDS ORDERED: diphenhydrAMINE HCL 50 MG/ML VIAL IVP ONE (19:03)
--- NOTE | 2019-03-17 19:40 | ED Physician Documentation ---
Headache - HISTORIAN Historian: patient - HPI Stated Complaint: c/o migraine Chief Complaint: Headache Additional Information: Patient presents to ED with a 2 day history of left sided migraine headache. Patient has a long standing history of migraines and is under the care of a neurologist. She reports associated light sensitivity, nausea and vomiting. Onset: days ago (2) Timing: other (woke up headache) Exposure To: none Severity: severe Quality: similar to previous Associated Symptoms: sensitivity to light, nausea, vomiting. denies: neck pain Preceding Symptoms: denies: visual disturbance Exacerbated By: light, noise, movement - ROS NEURO/PSYCH: denies: confusion EYES/ENT: denies: sore throat, difficulty swallowing CVS/RESP: denies: chest pain, shortness of breath GI/: denies: abdominal pain MS/SKIN/LYMPH: denies: muscle aches all systems neg except as marked: Yes - PAST HX Medical History: migraines Allergies/Adverse Reactions: Allergies Allergy/AdvReac Type Severity Reaction Status Date / Time tramadol Allergy Mild Hives Verified 03/17/19 19:10 Penicillins Allergy Unknown Verified 03/17/19 19:10 Home Medications: Ambulatory Orders Medication Instructions Recorded Citalopram Hydrobromide [Celexa] 40 mg PO D 01/09/14 Estradiol [Estrace] 1 mg PO D 01/09/14 Propranolol HCl [Inderal] 20 mg PO TID #90 tablet 11/21/14 Baclofen 20 mg PO QID 04/23/17 carBAMazepine [Tegretol] 200 mg PO QID 07/20/17 Methocarbamol [Robaxin] 500 mg PO Q6 PRN #40 tablet 11/25/18 Ondansetron HCl Rapdis [Zofran Odt] 4 mg PO Q8 PRN #20 tab 11/25/18 Butalb/Acetaminophen/Caffeine 1 cap PO PRN PRN 03/17/19 [Fioricet 50-300-40 mg Capsule] Topiramate [Trokendi Xr] 75 mg PO DAILY 03/17/19 - SOCIAL HX Smoking History: non-smoker Alcohol Use: none Drug Use: none - Family HX Family History: none - VITAL SIGNS Vital Signs: Vital Signs Temp Pulse Resp BP Pulse Ox 99.5 F 73 16 111/81 99 03/17/19 19:05 03/17/19 19:05 03/17/19 19:05 03/17/19 19:05 03/17/19 19:05 - REVIEWED ASSESSMENTS Nursing Assessment Reviewed: Yes Vitals Reviewed: Yes ED Results Lab/Radiology - Orders Orders: ED Orders Category Date Time Status Place IV Lock 1T Care 03/17/19 19:03 Active 0.9 % Sodium Chloride [Normal Saline] 1,000 ml Med 03/17/19 19:03 Discontinued IV Q1H Baclofen [Lioresal] Med 03/17/19 20:12 Stop Req 10 mg PO NOW ONE Dexamethasone Sodium Phosphate [Decadron] Med 03/17/19 19:03 Discontinued 4 mg IV NOW ONE Ketorolac Tromethamine [Toradol] Med 03/17/19 19:03 Discontinued 30 mg IV NOW ONE Promethazine HCl [Phenergan] Med 03/17/19 19:03 Discontinued 25 mg PO NOW ONE diphenhydrAMINE HCL [Benadryl] Med 03/17/19 19:03 Discontinued 50 mg IVP NOW ONE oxyCODONE HCL/ACETAMINOPHEN [Percocet 10-325] Med 03/17/19 20:11 Once 1 each PO NOW ONE Headache Physical Exam - EXAM General Appearance: alert, mild distress EENT: eyes nml inspection Neck: supple. No: lymphadenopathy Respiratory: no resp distress, chest non-tender, breath sounds normal CVS: reg. rate & rhythm, heart sounds nml Abdomen: non-tender Skin: color nml, no rash Extremitites: non-tender, no evidence of injury - NEURO/PSYCH Higher Functions: alert, oriented x3, nml speech, mood/affect nml Cranial: no evidence of acute CVA Cerebellar: nml as tested Sensorimotor: motor nml, sensation nml Discharge Clincal Impression: Migraine Qualifiers: Migraine type: without aura Status migrainosus presence: without status migrainosus Intractability: not intractable Qualified Code(s): G43.009 - Migraine without aura, not intractable, without status migrainosus Referrals: Laura Mcelroy PRN [Primary Care Provider] - 2 Days Additional Instructions: 1. Take medication as prescribed by your Neurologist 2. Follow up with Neurologist within 3-5 days 3. Return to ER for new or worsening symptoms Condition: Stable Disposition: 01 HOME, SELF-CARE Decision to Admit: NO Date of Decison to Admit: 03/17/19 Decision Time: 20:15
[2019-03-17] MEDS ORDERED: BACLOFEN 10 MG TABLET PO ONE (20:12)
[2019-03-17] MEDS ORDERED: oxyCODONE/ACETAMINOPHEN 5/325 TABLET PO ONE (20:18)
[2019-03-17 20:43] VITALS: BP 115/78
== END 2019-03-17 20:42 | disposition home or self-care (01) ==
LOC: ED 18:42
DX: G43.909 Migraine, unspecified, not intractable, without status migrainosus (principal)
CPT/HCPCS: 96361; 96374; 96375; 99283; 99284; A9270; J1100; J1200; J1885; J7030; S1016

== ENCOUNTER 2019-06-10 16:31 | Emergency (ER) | payer BC ==
[2019-06-10] MEDS ORDERED: KETOROLAC TROMETHAMINE 30 MG/1ML VIAL ONE (17:15)
[2019-06-10] MEDS ORDERED: ONDANSETRON HCL/PF 4 MG/ 2ML VIAL ONE (17:15)
[2019-06-10] MEDS ORDERED: NORMAL SALINE 1,000 ML IV.SOLN IV ONE (17:15)
[2019-06-10] MEDS ORDERED: HYDROcodone /APAP 5/325 1 EACH TABLET ONE (17:15)
[2019-06-10] MEDS ORDERED: fentaNYL CITRATE/PF 100 MCG/2 ML INJ. ONE (17:15)
[2019-06-10] MEDS ORDERED: HYDROmorphone HCL/PF 1 MG/ML VIAL ONE (17:15)
== END 2019-06-10 19:33 | disposition home or self-care (01) ==
LOC: ED 16:31
DX: G43.909 Migraine, unspecified, not intractable, without status migrainosus (principal)
CPT/HCPCS: 99282; A9270; J1170; J1885; J2405; J3010; J7030; S1016